=== PATIENT | female | born 1980 | race Caucasian/White ===

== ENCOUNTER 2017-09-30 15:02 | Emergency (ER) | payer MEDICAID ==
[~2017-09-30] VITALS: Wt 57.0 kg
[2017-09-30] MEDS ORDERED: IBUPROFEN 800 MG TAB PO ONE (16:00)
[2017-09-30] MEDS ORDERED: DIPHTH/TET/ACEL PERTUSS (ADULT) 0.5 ML VIAL IM* ONE (16:00)
--- NOTE | 2017-09-30 16:17 | RADRPT ---
PROCEDURE: XR Finger. CLINICAL INDICATION: Trauma due to a dog bite. Left second finger pain. TECHNIQUE: Three views. Frontal, lateral, and oblique. COMPARISON: None available FINDINGS: There is no fracture or dislocation. The soft tissues are normal. Articular surfaces are intact. There is no lytic or blastic lesion. There is no radiopaque foreign body. IMPRESSION: 1. Normal images of the left second finger. RPTAT: QQ .River Turk MD, MD Date Time Electronically viewed and signed by .River Turk MD, on 09/30/2017 16:16 .R/
--- NOTE | 2017-09-30 16:22 | ERD ---
ER Documentation Chief Complaint Chief Complaint DOG BITE ON RIGHT INDEX FINGER HPI Is a 36-year-old female who presents to the department today complaining of some left hand second index finger pain after being bit by her neighbor's dog earlier today. States the animal control came to take the dog away. States that the dog was a pit bull. States that she thinks her last tetanus was within the last 5 years but she is unsure. She does not take any medication for the pain. Denies any fevers or chills. ROS All systems reviewed and are negative except as per history of present illness. Medications Home Meds Active Scripts Amoxicillin/Potassium Clav (Amox-Clav 875-125 mg Tablet) 875-125 mg Tab, 1 TAB PO BID for 7 Days, #14 TAB Prov:CASTILLO BEVERLY PA-C 09/30/17 Ibuprofen* (Motrin*) 600 Mg Tab, 600 MG PO Q6, #30 TAB Prov:CASTILLO BEVERLY PA-C 09/30/17 Allergies Allergies: Coded Allergies: No Known Allergy (Unverified , 04/20/14) PMhx/Soc History of Surgery: Yes (TUBAL LIGATION) Hx Miscellaneous Medical Probl: Yes (NERVE REPAIR) Hx Alcohol Use: Yes Hx Substance Use: No Hx Tobacco Use: No Physical Exam Vitals Vital Signs Date Time Temp Pulse Resp B/P Pulse Ox O2 Delivery O2 Flow Rate FiO2 09/30/17 15:05 97.4 98 17 142/92 98 Physical Exam Const: NAD Head: Atraumatic Eyes: Normal Conjunctiva ENT: Normal External Ears, Nose and Mouth. Neck: Full range of motion..~ No meningismus. Resp: Clear to auscultation bilaterally Cardio: Regular rate and rhythm, no murmurs Abd: Soft, non tender, non distended. Normal bowel sounds Skin: No petechiae or rashes MSk: Left hand second index finger with no obvious deformity. No effusion. Evidence of small 0.5 cm laceration. Tenderness to palpation PIP and DIP joint. Full active range of motion of finger. Pulses 2+. Cap refill. Neur: Awake and alert Psych: Normal Mood and Affect Results 24 hrs Current Medications Medications (Trade) Dose Ordered Sig/Sendy Route PRN Reason Start Time Stop Time Status Last Admin Dose Admin Ibuprofen (Motrin) 800 mg ONCE ONCE PO 09/30/17 16:00 10/31/17 16:01 DC 09/30/17 16:27 Diphtheria/ Tetanus/Acell Pertussis (Adacel) 0.5 ml ONCE ONCE IM* 09/30/17 16:00 09/30/17 16:01 DC 09/30/17 16:27 DIAGNOSTIC IMAGING REPORT Patient: ALEX TERRAZAS : 1980 Age: 36 Sex: F MR #: [id number] DOS: 09/30/17 0000 Ordering MD: CASTILLO BEVERLY PA-C Location: E Room/Bed: PROCEDURE: XR Finger. CLINICAL INDICATION: Trauma due to a dog bite. Left second finger pain. TECHNIQUE: Three views. Frontal, lateral, and oblique. COMPARISON: None available FINDINGS: There is no fracture or dislocation. The soft tissues are normal. Articular surfaces are intact. There is no lytic or blastic lesion. There is no radiopaque foreign body. IMPRESSION: 1. Normal images of the left second finger. RPTAT: QQ .River Turk MD, MD Date Time Electronically viewed and signed by .River Turk MD, MD on 09/30/2017 16:16 .R/ CC: CASTILLO BEVERLY PA-C Procedures/MDM This a right handed 36 year old female presents the emergency department today complaining of left index finger pain after being bit by her neighbor's pit bull earlier today. Patient did have some tenderness at her joints in addition to the small laceration and therefore I did obtain images Per the radiology report images of the left second finger are unremarkable. There is no acute fracture or dislocation. Soft tissues are normal. Symptoms at this time is consistent with dog bite. Patient's tetanus was updated here in the emergency department. The wounds were cleaned and closed with Steri-Strips. Do not feel the patient requires sutures at this time. Patient was given Motrin here in the emergency department. She was given a prescription for Motrin and Augmentin for home and instructed to keep the wound clean and dry and instructed to follow-up in 48 hours for a wound check. Patient understood. She is afebrile and otherwise well-appearing. Low suspicion for sepsis, cellulitis, deep space infection. At this time the patient is stable for discharge and outpatient management. Patient should follow up with their PCP in the next 1-2 days. They may return to the emergency department sooner for any persistent or worsening of symptoms. Patient understood and agreed with the plan. Departure Diagnosis: Primary Impression: Dog bite Encounter type: initial encounter Qualified Code: W54.0XXA - Dog bite, initial encounter Condition: Fair CASTILLO BEVERLY PA-C Sep 30, 2017 16:22
[2017-09-30] MEDS ORDERED: IBUP-1542 PO (16:40)
[2017-09-30] MEDS ORDERED: AMOX1TAB10 PO (16:40)
== END 2017-09-30 17:16 | disposition home or self-care (01) ==
LOC: FTE 15:02
DX: S61.211A Laceration without foreign body of left index finger without damage to nail, initial encounter (principal); W54.0XXA Bitten by dog, initial encounter; Y92.9 Unspecified place or not applicable; Z23 Encounter for immunization
CPT/HCPCS: 73140; 90471; 90715; Z7502; Z7610

== ENCOUNTER 2018-05-07 10:35 | Emergency (ER) | END 2018-05-07 11:40 | disposition home or self-care (01) ==

== ENCOUNTER 2019-07-15 11:39 | Emergency (ER) | payer MEDICAID, OTHER ==
[~2019-07-15] VITALS: Ht 160 cm; Wt 61.1 kg
[~2019-07-15 11:39] MED LIST: AMOX1TAB10 PO; IBUP-1542 PO; IBUP800T48 PO
[2019-07-15 11:48] VITALS: BP 145/78; PULSE 117; RESP 28; Ht 160 cm; Wt 61.1 kg
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
[2019-07-15] MEDS ORDERED: IBUPROFEN 800 MG TAB PO ONE (13:00)
== END 2019-07-15 12:32 | disposition home or self-care (01) ==
LOC: FTE 11:39
DX: S06.0X0A Concussion without loss of consciousness, initial encounter (principal); F17.210 Nicotine dependence, cigarettes, uncomplicated; R40.2412 Glasgow coma scale score 13-15, at arrival to emergency department; S49.92XA Unspecified injury of left shoulder and upper arm, initial encounter; V28.4XXA Motorcycle driver injured in noncollision transport accident in traffic accident, initial encounter
CPT/HCPCS: Z7502; Z7610; 99283